=== PATIENT | female | born 1990 | race Caucasian/White ===

== ENCOUNTER 2024-10-13 14:45 | Emergency (ER) | payer OTHER, SELFPAY ==
[2024-10-13 14:45] VITALS: BP 138/76; PULSE 90; RESP 18; TEMP 36.1; O2SAT 100; BMI 31.2
[2024-10-13 16:43] LABS: Mucous, Urine 0 SEEN /hpf (<or=2+)
--- NOTE | 2024-10-13 16:44 | US_ITS ---
STUDY: ULTRASOUND TRANSVAGINAL CLINICAL: Female, 34 years old. abnromal bleeding TECHNIQUE: Transvaginal COMPARISON: None. FINDINGS: Normal uterine size measuring 9.4 x 6.5 x 4.6 cm in maximal craniocaudal dimension. There are no myometrial masses. Normal endometrial thickness measuring 1.3 mm. There are no endometrial masses, and there is no fluid in the endometrial cavity. Normal uterine cervix. Normal right ovary, measuring 5.3 x 3.5 x 2.7 cm. There is a complex cyst measuring 4 x 2.7 x 1.7 cm Normal left ovary, measuring 2.9 x 2.3 x 1.8 cm. There are multiple follicles without a dominant cyst. There is no free fluid in the pelvis. US/Transvaginal Non- IMPRESSION: Right ovarian complex cyst measuring 4 x 2.7 x 1.7 cm of uncertain significance Recommend clinical correlation and follow-up studies if clinically warranted Electronically Signed: Raul Lewis MD at 18:01 EST Reading Location ID and State: [address] [place] [address] Tel , Service support ,
[2024-10-13 16:45] VITALS: BP 123/84; PULSE 73; RESP 18; O2SAT 98
[2024-10-13 16:50] LABS: Color, Urine Yellow (Yellow); Glucose, Dipstick Normal (Normal); Ketone-Dipstick Negative (Negative); Leukocyte Esterase-Dipstick 25 /ul (Negative); Nitrite-Dipstick Negative (Negative); Occult Blood-Urine 250 /ul (Negative); Protein-Dipstick 15 mg/dl (Negative); Urine Bilirubin Dipstick Negative (Negative); Urine Clarity Cloudy (Clear); Urine Urobilinogen Normal (Normal)
--- NOTE | 2024-10-13 16:58 | EDS_ITS ---
HPI HPI - Female History of Present Illness Chief Complaint: Vag Bleeding Informant: patient Narrative Narrative: Patient is a 34-year-old female who lives in [place] but is up here for the holidays visiting her in-laws. She is presenting with abnormal vaginal bleeding and passage of large clots. Her last menstrual period started on September 23 she has had bleeding since. She notes that around October 02 at the bleeding really increased. She states today she passed 3 large clots that were approximately 5 cm x 3 cm from her description. She notes that she has been feeling tired, had more frequent headaches when he does have a history of headaches) has been having pelvic cramping and been feeling lightheaded. Denies any dizziness. States that she is actually scheduled to have a tubal ligation on November 24. She does have a history of LEEPs in the past. She has abnormal discharge. Denies any urinary symptoms. States that she has not been sexually active and therefore does not think she could be . Has been taking 800 mg ibuprofen every 8 hours intermittently As recommended by her orthopedist after foot fracture. No other complaints or concerns reported at this time. States she tried to call her [employer] in [place] but they were closed for the holiday. [facility] Home Medications ?Medication ?Instructions ?Recorded ?Last Taken ?Type NK 10/13/24 Unknown History Allergy/AdvReac Type Severity Reaction Status Date / Time No Known Allergies Allergy Verified 10/13/24 14:45 Surgical History History of foot surgery H/O shoulder surgery Social History Smoking Status: Never smoker ROS ROS ED Constitutional Constitutional ED: Denies chills or fever(s) Cardiovascular Cardiovascular: Denies chest pain Respiratory/Chest Respiratory/Chest: Denies cough Gastrointestinal Gastrointestinal: Denies abdominal pain, nausea or vomiting Genitourinary Genitourinary ED: Reports other Details: Reports abnormal vaginal bleeding, heavy bleeding with passage of large clots. Denies any abnormal vaginal discharge ; Denies dysuria or urinary frequency Musculoskeletal Musculoskeletal: Denies arthralgias Neurologic Neurologic: Denies weakness Psychiatric Psychiatric: Reports anxiety Hematologic/Lymphatic Hematologic/Lymphatic: Denies easy bleeding or easy bruising EXAM Physical Exam Const Vital Signs: 10/13/24 14:45 10/13/24 16:45 10/13/24 18:00 Temperature 97 F L Temperature Source Temporal Pulse Rate 90 73 88 Respiratory Rate 18 18 16 Blood Pressure 138/76 H 123/84 H 119/76 Blood Pressure Mean 96 97 90 Pulse Ox 100 98 98 Oxygen Delivery Method Room Air Room Air Room Air Positive well nourished and well developed General Appearance ED: well developed and NAD; Negative for pallor HEENT Reports moist mucous membranes Eyes PERRL Neck supple Chest Wall inspection of chest normal and palpation of chest normal Resp normal respiratory effort and clear to auscultation bilaterally Cardio regular rate and regular rhythm GI normal to inspection, nondistended, normoactive bowel sounds, soft to palpation and non-tender Narrative: Chaperoned pelvic exam performed. Normal external genitalia. There is scant blood noted in vaginal canal. Cervix appears closed. No cervical motion tenderness. No abnormal vaginal discharge. No adnexal or suprapubic tenderness on bimanual exam. Extremity normal to inspection Neuro oriented x3 Sensorium / Orientation: alert Psych mental status grossly normal Skin no rashes or lesions noted and no wounds General Skin Exam: Negative for pallor MDM MDM MDM Narrative Medical decision making narrative: Patient is evaluated for heavy/abnormal vaginal discharge. States she is going through 3 pads a day but passing large clots. Concerned about blood loss. Lives in [place] and is from out of state. Differential includes symptomatic anemia, dysfunctional uterine bleeding, ectopic ,thrombocytopenia or unknown coagulopathy. CBC, BMP, PT/PTT and urinalysis as well as urine obtained. Urinalysis consistent with menstrual contamination with greater than 100 red blood cells. PT test is negative. CBC shows a normal hemoglobin of 14.0. Low suspicion for acute blood loss anemia. Platelets are normal and so are her PT and PTT. CMP also normal. Pelvic ultrasound obtained which shows a right ovarian complex cyst of uncertain significance but no other acute abnormalities. Given the patient is not having significant bleeding on pelvic exam, is overall well-appearing with normal vital signs and normal labs feel that she can follow- up outpatient. Counseled on using 600 mg ibuprofen every 6 hours to help with the bleeding. At instructed to follow-up with her [facility] when she returns to [place]. Given return precautions to the ER such as bleeding through a pad an hour for 2 hours in a row, severe pain or feeling like she is going to pass out. Patient and spouse verbalized agreement understand this plan. Patient discharged home in stable condition. Lab Data Attestation: I reviewed the patient's lab results. Labs: Laboratory Results - last 24 hr 10/13/24 10/13/24 16:36 16:53 WBC 10.9 RBC 4.52 Hgb 14.0 Hct 42.1 MCV 93.1 MCH 31.0 MCHC 33.3 RDW Std Deviation 42.8 RDW Coeff of [place] 12.4 Plt Count 276 MPV 9.2 Immature Gran % (Auto) 0.400 Neut % (Auto) 62.0 Lymph % (Auto) 30.2 [place] % (Auto) 6.4 Eos % (Auto) 0.7 Baso % (Auto) 0.3 Absolute Neuts (auto) 6.8 Absolute Lymphs (auto) 3.30 Nucleated RBC % 0 PT 12.6 INR 0.9 APTT 25.7 Sodium 138 Potassium 4.2 Chloride 105 Carbon Dioxide 30.0 Anion Gap 4 L BUN 12 Creatinine 0.98 Estim Creat Clear Calc 81.82 Est GFR (MDRD) Af Amer 84 Est GFR (MDRD) Non-Af 69 BUN/Creatinine Ratio 12.2 Glucose 87 Calcium 9.1 Urine Color Yellow Urine Clarity Cloudy Urine pH 8.0 Ur Specific [place] 1.010 Urine Protein 15 H Urine Glucose (UA) Normal Urine Ketones Negative Urine Occult Blood 250 H Urine Nitrite Negative Urine Bilirubin Negative Urine Urobilinogen Normal Ur Leukocyte Esterase 25 H Urine RBC > 100 SEEN Urine WBC 0-5 SEEN Ur Squamous Epith Cells 0-5 SEEN Amorphous Sediment 2+ Urine Bacteria 1+ Urine Mucus 0 SEEN Urine Test Negative Radiography Diagnostic Testing: Clinical Impression(s) from Imaging Studies Transvaginal US 10/13/24 16:44 IMPRESSION: Right ovarian complex cyst measuring 4 x 2.7 x 1.7 cm of uncertain significance Recommend clinical correlation and follow-up studies if clinically warranted Electronically Signed: Raul Lewis MD at 18:01 EST Reading Location ID and State: [facility] / [place] Tel , Service support , Discharge Plan Triage Chief Complaint: Vag Bleeding ED Provider: Mel Monsivais Dx/Rx/DC Orders Clinical Impression: DUB (dysfunctional uterine bleeding), Complex cyst of right ovary Instructions: ED Dysfunctional Uterine Bleeding, ED Ovarian Cyst Prescriptions: No Action NK Primary Care Provider: Care Physician,No Primary Referrals: Care Physician,No Primary [Primary Care Provider] - Activity Restrictions/Additional Instructions: Please follow-up with your [employer] for further evaluation workup of the bleeding as well as a complex of right ovarian cyst noted on your ultrasound today. Return if you develop heavier bleeding, bleeding through more than a pad an hour for 2 hours in a row or have severe pain. Print Language: [place]ien Disposition Disposition: Home, Self Care
[2024-10-13 16:59] LABS: Red Blood Cells-Urine > 100 SEEN /hpf (0-5); Squamous Epithelial Cells - UA 0-5 SEEN /hpf (5-10); White Blood Cells 0-5 SEEN /hpf (0-5)
[2024-10-13 17:00] LABS: Amorphous Sediment 2+; Bacteria 1+ /hpf (None Seen); Internal QC Validated? YES +Cl - CLEAR BKGD; Pregnancy, Urine Negative Negative
[2024-10-13 17:05] LABS: Absolute Neutrophil Count 6.8 X10^3/uL (2.0-7.7); Basophil# 0.03 X10^3/uL; Basophil% 0.3 % (0-1); Eosinophil# 0.08 X10^3/uL; Eosinophils% 0.7 % (0-5); Hematocrit 42.1 % (37-47); Lymphocyte % 30.2 % (19-41); Mean Corp Hgb Conc 33.3 g/dL (32-36); Mean Corpuscular Volume 93.1 fL (81-99); Mean Platelet Vol. 9.2 fl (6.2-12.0); Monocyte% 6.4 % (0-10); NRBC Flagged by Analyzer 0 % (0-5); Neutrophil # 6.78 X10^3/uL (2.7-7.7); Platelet Count 276 K/mm3 (150-450); RBC Distribution Width CV 12.4 % (11.6-14.6); RBC Distribution Width SD 42.8 fl (35.1-43.9); Red Blood Count 4.52 M/mm3 (4.2-5.4); White Blood Count 10.9 K/mm3 (4.4-11.0)
[2024-10-13 17:18] LABS: International Normalized Ratio 0.9; Prothrombin Time (Protime)PT. 12.6 SECONDS (11.7-14.9)
[2024-10-13 17:19] LABS: Partial Thromboplast Time 25.7 Seconds (24.1-36.2)
[2024-10-13 17:25] LABS: Anion Gap 4 (5-15); BUN 12 mg/dL (7-18); BUN/Creat Ratio 12.2 RATIO (10-20); Calcium,Total 9.1 mg/dL (8.5-10.1); Chloride 105 mmol/L (98-107); Creatinine, Serum 0.98 mg/dL (0.55-1.02); EST Glomerular Filtration Rate 69 mL/min (>60); Est Glom Filt Rate - Afr Amer 84 mL/min (>60); Estimated Creatinine Clearance 81.82 ml/min; Glucose 87 mg/dL (74-106); Potassium 4.2 mmol/L (3.5-5.1); Sodium Level 138 mmol/L (136-145)
[2024-10-13 18:00] VITALS: BP 119/76; PULSE 88; RESP 16; O2SAT 98
[2024-10-13 19:00] VITALS: BP 112/72; PULSE 69; RESP 16; TEMP 36.6; O2SAT 99
--- NOTE | 2024-10-13 19:06 | ED.RN ---
Imaging disk given to patient from ultrasound.
== END 2024-10-13 19:24 | disposition home or self-care (01) ==
PROVIDERS: Emergency Provider Emergency Medicine; Visit Provider Emergency Medicine
DX: N93.8 Other specified abnormal uterine and vaginal bleeding (principal); N83.201 Unspecified ovarian cyst, right side
CPT/HCPCS: 76830; 80048; 81001; 81025; 85025; 85610; 85730; 99282; A4216